=== PATIENT | male | born 2000 | race Caucasian/White ===

== ENCOUNTER 2021-09-27 17:50 | Emergency (ER) | payer BC | END 2021-09-27 20:15 | disposition home or self-care (01) | LOC: ER1 17:50 | DX: S42.032A Displaced fracture of lateral end of left clavicle, initial encounter for closed fracture (principal); S83.92XA Sprain of unspecified site of left knee, initial encounter; V86.99XA Unspecified occupant of other special all-terrain or other off-road motor vehicle injured in nontraffic accident, initial encounter | CPT/HCPCS: 29505; 72125; 73030; 73562; 99284 ==